=== PATIENT | female | born 1950 | race Caucasian/White ===

== ENCOUNTER 2016-11-13 07:10 | Observation (INO) | payer OTHER ==
[2016-11-10 12:41] LABS: BASOPHILS 0.6 %; BASOPHILS ABSOLUTE 0.06 10/3/uL (0.0-0.16); EOSINOPHILS 10.7 %; EOSINOPHILS ABSOLUTE 1.04 10/3/uL (0.0-0.53); HEMATOCRIT 33.4 % (36.0-48.0); HEMOGLOBIN 10.6 g/dL (12.0-16.0); IMMATURE GRANULOCYTES 0.6 %; IMMATURE GRANULOCYTES ABSOLUTE 0.06 10/3/uL (0.0-0.11); LYMPHOCYTES 12.7 %; LYMPHOCYTES ABSOLUTE 1.24 10/3/uL (0.67-4.30); MEAN CORPUS HGB CONC 31.7 g/dL (32.0-36.0); MEAN CORPUSCULAR HEMOGLOB 25.5 pg (26.0-34.0); MEAN CORPUSCULAR VOLUME 80.5 fL (80-100); MEAN PLATELET VOLUME 8.9 fL (9.2-13.0); MONOCYTES 7.5 %; MONOCYTES ABSOLUTE 0.73 10/3/uL (0.21-1.20); NEUTROPHILS 67.9 %; NEUTROPHILS ABSOLUTE 6.63 10/3/uL (2.02-8.40); PLATELET COUNT 224 10/3/uL (150-400); RBC DISTRIBUTION WIDTH 16.6 % (12.0-16.0); RED CELL COUNT 4.15 10/6/uL (4.0-5.6); WHITE BLOOD CELLS 9.8 10/3/uL (4.5-10.5)
[2016-11-10 12:42] LABS: MANUAL DIFF NO %
[2016-11-10 12:50] LABS: INTERNATIONAL NORMAL RATI 1.2 UNITS (-); PROTIME (NOT ORD) 14.7 SEC (12.0-14.5)
[2016-11-10 12:57] LABS: BUN (BLOOD UREA NITROGEN) 32 MG/DL (6-23); CALCIUM, SERUM 8.7 MG/DL (8.5-10.4); CHLORIDE, SERUM 107 MMOL/L (96-112); CO2 (CARBON DIOXIDE) 27 MMOL/L (24-34); GFR AFRICAN AMERICAN 55 ML/MIN (>=60); GFR NON AFRICAN AMERICAN 48 ML/MIN (>=60); POTASSIUM, SERUM 4.6 MMOL/L (3.5-5.3); SODIUM, SERUM 140 MMOL/L (135-148)
[2016-11-10 12:58] LABS: GLUCOSE, SERUM 150 MG/DL (60-99)
[~2016-11-13] VITALS: Ht 160 cm; Wt 106.3 kg
--- NOTE | ~2016-11-13 | OP ---
Record Of Operation [facility] [address] [place]. [address] NAME: PB ALANIS : 54 STATUS : DIS Queenie PAT#: [id number] AGE: 66 ADM/REG DATE : 11/13/16 MR#: [id number] REPORT SERV DATE: 11/15/16 DICTATED BY: SALEEM HALL DATE: 11/14/16 REPORT STATUS : Draft TRANSCRIBED BY: ABRAHAM DATE: 11/14/16 DATE OF PROCEDURE: 11/13/2016 PREPROCEDURE DIAGNOSES: 1. Bilateral heel ulcer. 2. Diabetes. 3. Charcot deformity, left foot. POSTOPERATIVE DIAGNOSES: 1. 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 2. Patent tibial vessels and pedal arch on the left. 3. Widely patent femoral, popliteal, and runoff vessels, right foot. PROCEDURES PERFORMED: 1. Abdominal aortogram with bilateral lower extremity runoff. 2. Selective catheterization of the left SFA and popliteal artery with direct arteriography. 3. Atherectomy of the left superficial femoral artery, distal, TurboHawk LSM catheter with secondary angioplasty 5 x 6 balloon. ANESTHESIA: Local MAC. COMPLICATIONS: None. INDICATION FOR PROCEDURE: Secondary to this very pleasant 66-year-old diabetic female presenting with nonhealing ulcer on left and right feet, recommendations were made for arteriography to further define her peripheral vascular system and repair this if appropriate. Risks and benefits discussed. Consent was obtained. DETAILS OF PROCEDURE: The patient was brought to the endovascular operating room, placed in supine position, prepped and draped in routine sterile fashion with attention to the bilateral groin regions and entire left leg. Right common femoral artery was catheterized with a micropuncture needle under ultrasound guidance. Pictures of these structures were taken and placed on the chart. Next, wires were passed into the aorta followed by 6-Maori sheath. Fiatt flush catheter was advanced to the level of L3. AP abdominal aortogram was performed showing evidence of widely patent infrarenal aorta, patent common external iliac arteries bilaterally. The catheter was then advanced from the right side into the left femoral. Arteriogram demonstrated this to be patent. The catheter was then advanced into the superficial femoral artery and this was found to be patent in the proximal mid segment, a critical stenosis in the distal segment, 80% narrowing. Wire was passed through this area. Magnified imaging was performed confirming the critical lesion, 80%, distal SFA. Atherectomy was then performed after 3000 units of heparin were given and allowed to circulate. The atherectomy was completed with a TurboHArista Powerk LSM catheter standard 6 plane passing technique. Angioplasty was performed with a 5 x 6 balloon adequately reconstructing this segment. With this completed runoff, lower leg was then completed after advancing the catheter to the popliteal. Three-vessel runoff was seen flowing into the leg and into the Record Of Operation [address] [address] NAME: PB ALANIS : 54 STATUS : DIS Queenie PAT#: [id number] AGE: 66 ADM/REG DATE : 11/13/16 MR#: [id number] REPORT SERV DATE: 11/15/16 DICTATED BY: SALEEM HALL DATE: 11/14/16 REPORT STATUS : Draft TRANSCRIBED BY: ABRAHAM DATE: 11/14/16 ankle with excellent flow into the posterior and anterior compartments. At this point, wires and catheters were then pulled back to the right side and right lower leg runoff was then completed showing widely patent SFA, popliteal vessel, and three-vessel runoff to the foot. No indication for intervention in the right lower extremity. The right groin was then closed with Angio-Seal. The patient tolerated the procedure well. CL/ABRAHAM Saleem Hall M.D. / [id number] CC: Charles Connor M.D.
[~2016-11-13 07:10] MED LIST: APRES25 PO; ASAB PO; AUG875 PO; B121000P IM; COZ50 PO; HUMULIN R1 ML SC; HYZAAR 100/25 T1 TAB PO; INSNOVR SC; KAPIDEX60 MG PO; KLOR-CON 1010 MEQ PO; L40 PO; L80 PO; LANTUS SC; LANTUSCART SC; LEVOTHYROXIN125 MCG PO; LOP100 PO; LYRICA75 PO; MACRO50B PO; REG5 PO; SANTYL250 MG/GM TOP; SILVADENE1 % TOP; SUCR PO; TOPXL100 PO; ZOCOR20 PO; ZYVOXPO PO
[2016-11-14 06:10] LABS: BASOPHILS 1.5 %; BASOPHILS ABSOLUTE 0.13 10/3/uL (0.0-0.16); EOSINOPHILS 12.7 %; EOSINOPHILS ABSOLUTE 1.07 10/3/uL (0.0-0.53); HEMOGLOBIN 9.4 g/dL (12.0-16.0); IMMATURE GRANULOCYTES 0.2 %; IMMATURE GRANULOCYTES ABSOLUTE 0.02 10/3/uL (0.0-0.11); LYMPHOCYTES 17.8 %; MEAN CORPUS HGB CONC 31.5 g/dL (32.0-36.0); MEAN CORPUSCULAR HEMOGLOB 25.2 pg (26.0-34.0); MEAN CORPUSCULAR VOLUME 79.9 fL (80-100); MEAN PLATELET VOLUME 8.7 fL (9.2-13.0); MONOCYTES 6.5 %; MONOCYTES ABSOLUTE 0.55 10/3/uL (0.21-1.20); NEUTROPHILS 61.3 %; NEUTROPHILS ABSOLUTE 5.15 10/3/uL (2.02-8.40); PLATELET COUNT 220 10/3/uL (150-400); RBC DISTRIBUTION WIDTH 16.5 % (12.0-16.0); RED CELL COUNT 3.73 10/6/uL (4.0-5.6); WHITE BLOOD CELLS 8.4 10/3/uL (4.5-10.5)
[2016-11-14 06:15] LABS: HEMATOCRIT 29.8 % (36.0-48.0); MANUAL DIFF NO %
[2016-11-14 06:22] LABS: CALCIUM, SERUM 8.3 MG/DL (8.5-10.4); CHLORIDE, SERUM 108 MMOL/L (96-112); CO2 (CARBON DIOXIDE) 23 MMOL/L (24-34); CREATININE 1.35 MG/DL (0.55-1.02); GFR AFRICAN AMERICAN 48 ML/MIN (>=60); GFR NON AFRICAN AMERICAN 41 ML/MIN (>=60); POTASSIUM, SERUM 4.3 MMOL/L (3.5-5.3); SODIUM, SERUM 140 MMOL/L (135-148)
[2016-11-14 06:23] LABS: BUN (BLOOD UREA NITROGEN) 28 MG/DL (6-23); GLUCOSE, SERUM 292 MG/DL (60-99)
[2016-11-14] MEDS ORDERED: PLAVIX PO (10:06)
== END 2016-11-14 18:50 | disposition home or self-care (01) ==
LOC: ENRESERVTM → ENRESERVDT → ENRESERV → SDC 07:10 → 2SO 12:52
PROVIDERS: Specialist
PROC: 04CL3ZZ Extirpation of Matter from Left Femoral Artery, Percutaneous Approach (ICD-10-PCS; principal; 2016-11-13 10:00)
DX: I74.3 Embolism and thrombosis of arteries of the lower extremities (principal); E11.621 Type 2 diabetes mellitus with foot ulcer; L97.529 Non-pressure chronic ulcer of other part of left foot with unspecified severity; L97.519 Non-pressure chronic ulcer of other part of right foot with unspecified severity; E11.22 Type 2 diabetes mellitus with diabetic chronic kidney disease; I12.9 Hypertensive chronic kidney disease with stage 1 through stage 4 chronic kidney disease, or unspecified chronic kidney disease; N18.2 Chronic kidney disease, stage 2 (mild); I73.9 Peripheral vascular disease, unspecified; D64.9 Anemia, unspecified; Z88.1 Allergy status to other antibiotic agents; Z88.2 Allergy status to sulfonamides; Z79.899 Other long term (current) drug therapy; Z79.82 Long term (current) use of aspirin; Z98.890 Other specified postprocedural states
CPT/HCPCS: 37225; 71020; 73718-RT; 75625; 75716; 80048; 82962; 85025; 85610; 88304; 93005; A9270-GY; C1724; C1725; C1760; C1769; C1887; C1894; G0378; J2250; J3010; Q9967